=== PATIENT | male | born 1990 | race African-American/Black ===

== ENCOUNTER 2019-12-28 00:20 | Emergency (ER) | payer SELFPAY ==
[~2019-12-28] VITALS: Ht 172.7 cm; Wt 72.7 kg
[2019-12-28] MEDS ORDERED: ONDANSETRON ODT 4 MG TAB.RAPDIS. ONE (00:32)
--- NOTE | 2019-12-28 00:32 | PHYS DOC ---
Past Medical History Past Medical History: No Pertinent History Past Surgical History: No Surgical History Alcohol Use: Rarely Drug Use: Marijuana General Adult HPI: HPI: The history was obtained from the patient and EMS. Patient is a 29-year-old male with reported PMH who presents with a chief complaint of altered mental status. EMS states they were called to the patient's house for altered mental status. They state on arrival the patient was unresponsive. They state without intervention the patient became more alert and responsive. He endorses smoking K2 synthetic cannabinoids approximately 30 minutes prior to EMS arrival. He does note to drinking some alcohol tonight. He denies ingesting the substances in an attempt to harm himself. He denies any other known ingestions. He states his jaw feels tight. He denies any chest pain or shortness of breath. He denies any auditory visual hallucinations. He states he has used K2 in the past without this effect. Denies any headache. Denies vision or hearing changes. EMS states that he did vomit once in route without signs of aspiration. No other complaints. Review of Systems: Review of Systems: Constitutional: Denies fever or chills. [] Eyes: Denies change in visual acuity. [] HENT: Denies nasal congestion or sore throat. [] Respiratory: Denies cough or shortness of breath. [] Cardiovascular: Denies chest pain or edema. [] GI: Denies abdominal pain, nausea, vomiting, bloody stools or diarrhea. [] : Denies dysuria. [] Musculoskeletal: Denies back pain or joint pain. [] Integument: Denies rash. [] Neurologic: Positive for somnolence Endocrine: Denies polyuria or polydipsia. [] Lymphatic: Denies swollen glands. [] Psychiatric: Denies depression or anxiety. [] Heart Score: Risk Factors: Risk Factors: DM, Current or recent (<one month) smoker, HTN, HLP, family history of CAD, obesity. Risk Scores: Score 0 - 3: 2.5% MACE over next 6 weeks - Discharge Home Score 4 - 6: 20.3% MACE over next 6 weeks - Admit for Clinical Observation Score 7 - 10: 72.7% MACE over next 6 weeks - Early Invasive Strategies Allergies: Allergies: Allergies Coded Allergies Type Severity Reaction Last Updated Verified No Known Drug Allergies 11/02/13 No Physical Exam: PE: Constitutional: Well developed, well nourished, no acute distress, non-toxic appearance. [] HENT: Normocephalic, atraumatic, bilateral external ears normal, oropharynx moist, no oral exudates, nose normal. [] Eyes: PERRLA, EOMI, conjunctiva normal, no discharge. [] Neck: Normal range of motion, no tenderness, supple, no stridor. [] Cardiovascular:Heart rate regular rhythm, no murmur [] Lungs & Thorax: Bilateral breath sounds clear to auscultation [] Abdomen: soft, no tenderness, no masses, no pulsatile masses. [] Skin: Warm, dry, no erythema, no rash. [] Back: No tenderness, no CVA tenderness. [] Extremities: No tenderness, no cyanosis, no clubbing, ROM intact, no edema. [] Neurologic: Alert with intact cognitive function. No aphasia, dysarthria, or neglect. GCS 15. Pupils 6 mm briskly reactive b/l. No APD present. Cranial nerves 2-12 grossly intact; no facial asymmetry present, tongue midline, shoulder shrugging strength intact. Strength 5/5 and symmetric throughout. Light touch sensation intact throughout. Cerebellar testing appropriate without evidence of dysdiadochokinesia. DTR's 2+ in all 4 extremities. Negative pronator drift bilaterally. Psychologic: Affect normal, judgement normal, mood normal. [] Current Patient Data: Labs: Laboratory Tests Test 12/28/19 00:23 12/28/19 00:56 White Blood Count 16.2 x10^3/uL Red Blood Count 4.79 x10^6/uL Hemoglobin 14.2 g/dL Hematocrit 43.1 % Mean Corpuscular Volume 90 fL Mean Corpuscular Hemoglobin 30 pg Mean Corpuscular Hemoglobin Concent 33 g/dL Red Cell Distribution Width 13.8 % Platelet Count 215 x10^3/uL Neutrophils (%) (Auto) 77 % Lymphocytes (%) (Auto) 15 % Monocytes (%) (Auto) 7 % Eosinophils (%) (Auto) 0 % Basophils (%) (Auto) 1 % Neutrophils # (Auto) 12.4 x10^3/uL Lymphocytes # (Auto) 2.5 x10^3/uL Monocytes # (Auto) 1.1 x10^3/uL Eosinophils # (Auto) 0.1 x10^3/uL Basophils # (Auto) 0.1 x10^3/uL Platelet Estimate Pending Sodium Level 140 mmol/L Potassium Level 3.7 mmol/L Chloride Level 107 mmol/L Carbon Dioxide Level 26 mmol/L Anion Gap 7 Blood Urea Nitrogen 12 mg/dL Creatinine 1.4 mg/dL Estimated GFR (Cockcroft-Gault) 73.6 BUN/Creatinine Ratio 9 Glucose Level 113 mg/dL Calcium Level 8.7 mg/dL Total Bilirubin 1.0 mg/dL Aspartate Amino Transf (AST/SGOT) 16 U/L Alanine Aminotransferase (ALT/SGPT) 21 U/L Alkaline Phosphatase 67 U/L Total Protein 7.4 g/dL Albumin 4.1 g/dL Albumin/Globulin Ratio 1.2 Salicylates Level < 2.8 mg/dL Salicylate Last Dose Date Unknown Salicylate Last Dose Time Unknown Acetaminophen Level < 2 mcg/ml Acetaminophen Last Dose Date Unknown Acetaminophen Last Dose Time Unknown Ethyl Alcohol Level 47 mg/dL Urine Opiates Screen Neg Urine Methadone Screen Neg Urine Barbiturates Neg Urine Phencyclidine Screen Neg Urine Amphetamine/Methamphetamine Neg Urine Benzodiazepines Screen Neg Urine Cocaine Screen Neg Urine Cannabinoids Screen Neg Urine Ethyl Alcohol Pos Current Medications Medications (Trade) Dose Ordered Sig/Radha Route PRN Reason Start Time Stop Time Status Last Admin Dose Admin Lorazepam (Ativan Inj) 1 mg 1X ONCE IVP 12/28/19 01:00 12/28/19 01:01 DC 12/28/19 00:36 Ondansetron HCl (Zofran Odt) 4 mg STK-MED ONCE .ROUTE 12/28/19 00:32 12/28/19 00:32 DC Sodium Chloride 1,000 ml @ 100 mls/hr 1X ONCE IV 12/28/19 01:30 12/28/19 11:29 12/28/19 01:23 EKG: EKG: EKG consistent with normal sinus rhythm. Ventricular rate of 90 bpm. Sinus arrhythmia noted. Right axis noted. No ST segment elevation appreciated. Overall nonspecific EKG. [] Radiology/Procedures: Radiology/Procedures: [] Course & Med Decision Making: Course & Med Decision Making Pertinent Labs and Imaging studies reviewed. (See chart for details) Patient is a 29-year-old male who arrives via EMS for adverse reaction after smoking K2. Upon arrival vital signs notable for mild tachycardia. The patient did have a GCS of 15 on arrival. Denies ingestion of drugs in attempt to harm himself. Work-up grossly unremarkable. Minimal alcohol level. CT head nonacute. Remainder of labs unremarkable. Slight elevation of creatinine however the patient is tolerating p.o. He does have mild leukocytosis with this is likely reactive secondary to his recent drug use. Low suspicion for infection. Patient was monitored in the emergency department. He showed no signs of clinical or hemodynamic deterioration. Patient did slowly become more alert. At this time he does have a GCS of 15. He is alert and oriented x3. He has been able to ambulate without difficulty. Mom is at bedside currently. I do feel it is reasonable to discharge patient home with close monitoring. Mom does feel comfortable taking the patient home. He continues to deny any suicidal homicidal ideation. Return precautions discussed and understood. Instructed to follow-up with his primary care physician in the next 2 to 3 days. Stable for discharge home. Dragon Disclaimer: Alyson Disclaimer: This electronic medical record was generated, in whole or in part, using a voice recognition dictation system. Departure Departure Impression: Primary Impression: Synthetic cannabinoid intoxication Additional Impression: Alcohol intoxication Qualified Codes: F10.929 - Alcohol use, unspecified with intoxication, unspecified Disposition: 01 HOME, SELF-CARE Condition: IMPROVED Patient Instructions: Alcohol Intoxication Additional Instructions: Please follow-up with your primary care physician in the next 2 to 3 days. Please return emergency department should her symptoms not improve or worsen. [facility] [address] [place] [address] [facility] [address] [place] [address] [facility] [address] [facility] [place] [address] [facility] [address] [place] [address] [facility] [address] [place] [address] [facility] [address] [place] [address] [facility] [address] [place] [address] [facility] [address] [place] [address] [employer] [address] [place] [address] [facility] [address] [place] [address] Justicifation of Admission Dx: Justifications for Admission: Justification of Admission Dx: N/A NIMISHA HAND DO Dec 28, 2019 00:32
[2019-12-28 00:43] LABS: BASO # 0.1 x10^3/uL (0.0-0.2); BASO % 1 % (0-3); EOS # 0.1 x10^3/uL (0.0-0.7); EOS % 0 % (0-3); HEMATOCRIT 43.1 % (39.0-53.0); HEMOGLOBIN 14.2 g/dL (13.0-17.5); LYMPH # 2.5 x10^3/uL (1.0-4.8); LYMPH % 15 % (24-48); MEAN CORPUSCULAR HEMOGLOBIN 30 pg (25-35); MEAN CORPUSCULAR HGB CONC 33 g/dL (31-37); MEAN CORPUSCULAR VOLUME 90 fL (79-100); MONO # 1.1 x10^3/uL (0.0-1.1); MONO % 7 % (0-9); NEUT # 12.4 x10^3/uL (1.8-7.7); NEUT % 77 % (31-73); PLATELET COUNT 215 x10^3/uL (140-400); RED BLOOD COUNT 4.79 x10^6/uL (4.30-5.70); RED CELL DISTRIBUTION WIDTH 13.8 % (11.5-14.5); WHITE BLOOD COUNT 16.2 x10^3/uL (4.0-11.0)
[2019-12-28 00:58] LABS: CALCIUM 8.7 mg/dL (8.5-10.1); CREATININE 1.4 mg/dL (0.7-1.3); GFR 73.6; POTASSIUM 3.7 mmol/L (3.5-5.1)
[2019-12-28 01:03] LABS: ALBUMIN 4.1 g/dL (3.4-5.0); ALBUMIN/GLOBULIN RATIO 1.2 (1.0-1.7); TOTAL PROTEIN 7.4 g/dL (6.4-8.2)
[2019-12-28 01:09] LABS: ACETAMIN < 2 mcg/ml (10-30); ETHANOL 47 mg/dL (0-10); SALIC < 2.8 mg/dL (2.8-20.0)
[2019-12-28 01:19] LABS: BARBITURATES NEG (NEG); BENZODIAZEPINES NEG (NEG); CANNABINOIDS NEG (NEG); COCAINE NEG (NEG); METHADONE NEG (NEG); OPIATES NEG (NEG); PHENCYCLIDINE NEG (NEG)
[2019-12-28] MEDS ORDERED: IV NORMAL SALINE 1000ML BAG 1,000 ML IV ONE (01:30)
[2019-12-28 01:32] LABS: AMPHETAMINE/METHAMPHETAMINE NEG (NEG)
--- NOTE | 2019-12-28 02:22 | EKG ---
[facility] [address] [place] [address] Test Date: 2019-12-28 Test Time: 00:33:53 Pat Name: JENNY LEONARDO Department: Room: Gender: M [employer]: : 1990 Requested By: NIMISHA HAND Order Number: [id number] Reading MD: Measurements Intervals [place] Rate: 90 P: LA: QRS: 90 QRSD: 98 T: 56 QT: 344 QTc: 425 Interpretive Statements ATRIAL FLUTTER RVH WITH REPOLARIZATION ABNORMALITY ABNORMAL ECG RI6.02 No previous ECG available for comparison
--- NOTE | 2019-12-28 02:47 | RAD ---
STUDY: CT head without contrast INDICATION: Altered mental status. COMPARISON: None. TECHNIQUE: Axial CT imaging through the head without the use of intravenous contrast. Sagittal and coronal reformats were obtained. One or more of the following individualized dose reduction techniques were utilized for this examination: 1. Automated exposure control 2. Adjustment of the mA and/or kV according to patient size 3. Use of iterative reconstruction technique. FINDINGS: No acute intracranial hemorrhage. [place]-white matter differentiation is maintained. No mass effect, midline shift or hydrocephalus. Unremarkable scalp and calvarium. IMPRESSION: Unremarkable head CT. Electronically signed by: LUANNE HANSEN MD (12/28/2019 2:44 AM) [id number]
[2019-12-28 05:33] VITALS: BP 125/83
--- NOTE | 2019-12-28 05:57 | RAD ---
Study: CR CHEST AP ONLY Indication: Altered mental status. Comparison: None. Findings: Unremarkable cardiomediastinal silhouette and chelsi. No lobar consolidation, pleural effusion or pneumothorax. Impression: No acute radiographic abnormality. Electronically signed by: LUANNE HANSEN MD (12/28/2019 5:54 AM) [id number]
== END 2019-12-28 05:49 | disposition home or self-care (01) ==
LOC: ER 00:20
DX: F10.229 Alcohol dependence with intoxication, unspecified (principal); R41.82 Altered mental status, unspecified; R20.2 Paresthesia of skin; F12.90 Cannabis use, unspecified, uncomplicated
CPT/HCPCS: 36415; 70450; 71045; 80053; 80307; 80329; 85025; 93005; 96361; 96374; 99285; G0480; J2060; J7030

== ENCOUNTER 2020-01-26 21:46 | Emergency (ER) | payer SELFPAY ==
[~2020-01-26] VITALS: Ht 172.7 cm; Wt 79.5 kg
[2020-01-26 21:50] VITALS: BP 128/64
--- NOTE | 2020-01-26 21:59 | PHYS DOC ---
Past Medical History Past Medical History: No Pertinent History Past Surgical History: No Surgical History Smoking Status: Current Every Day Smoker Alcohol Use: Rarely Drug Use: Marijuana General Adult EDM: Chief Complaint: SEXUALLY TRANSMITTED DISEASE HPI: HPI: Patient is a 29 year old male who presents with states for the last week he has had burning with urination white creamy discharge. He states that his girlfriend went to [place] today to get checked also. Patient denies abdominal pain, nausea, vomiting, diarrhea, fever, back pain, testicular pain, blood in his urine. He denies past medical history although he states a few years ago he had a sexually transmitted disease also and that is what this feels like. Patient currently has no pain but he does have burning with urination. Review of Systems: Review of Systems: Constitutional: Denies fever or chills. [] Eyes: Denies change in visual acuity. [] HENT: Denies nasal congestion or sore throat. [] Respiratory: Denies cough or shortness of breath. [] Cardiovascular: Denies chest pain or edema. [] GI: Denies abdominal pain, nausea, vomiting, bloody stools or diarrhea. [] : + dysuria. +White penile discharge [] Musculoskeletal: Denies back pain or joint pain. [] Integument: Denies rash. [] Neurologic: Denies headache, focal weakness or sensory changes. [] Endocrine: Denies polyuria or polydipsia. [] Lymphatic: Denies swollen glands. [] Psychiatric: Denies depression or anxiety. [] Heart Score: Risk Factors: Risk Factors: DM, Current or recent (<one month) smoker, HTN, HLP, family history of CAD, obesity. Risk Scores: Score 0 - 3: 2.5% MACE over next 6 weeks - Discharge Home Score 4 - 6: 20.3% MACE over next 6 weeks - Admit for Clinical Observation Score 7 - 10: 72.7% MACE over next 6 weeks - Early Invasive Strategies Current Medications: Current Medications Medications (Trade) Dose Ordered Sig/Radha Start Time Stop Time Status Last Admin Dose Admin Azithromycin (Zithromax) 1,000 mg 1X ONCE 01/26/20 22:00 01/26/20 22:01 UNV Ceftriaxone Sodium (Rocephin Im) 250 mg 1X ONCE 01/26/20 22:00 9/27/20 22:01 UNV Allergies: Allergies: Allergies Coded Allergies Type Severity Reaction Last Updated Verified No Known Drug Allergies 11/02/13 No Physical Exam: PE: Constitutional: Well developed, well nourished, no acute distress, non-toxic appearance. [] HENT: Normocephalic, atraumatic, bilateral external ears normal, oropharynx moist, no oral exudates, nose normal. [] Eyes: PERRLA, EOMI, conjunctiva normal, no discharge. [] Neck: Normal range of motion, no tenderness, supple, no stridor. [] Cardiovascular:Heart rate regular rhythm, no murmur [] Lungs & Thorax: Bilateral breath sounds clear to auscultation [] Abdomen: Bowel sounds normal, soft, no tenderness, no masses, no pulsatile masses. [] Skin: Warm, dry, no erythema, no rash. [] Back: No tenderness, no CVA tenderness. [] Extremities: No tenderness, no cyanosis, no clubbing, ROM intact, no edema. [] Neurologic: Alert and oriented X 3, normal motor function, normal sensory function, no focal deficits noted. [] Psychologic: Affect normal, judgement normal, mood normal. Normal physical exam [] EKG: EKG: [] Radiology/Procedures: Radiology/Procedures: [] Course & Med Decision Making: Course & Med Decision Making Pertinent Labs and Imaging studies reviewed. (See chart for details) Abdomen soft and nontender. Afebrile. Ambulatory with a steady gait. Alert and oriented x4. Skin pink warm and dry. No penile discharge seen at this time. Urine is sent to the lab. Patient is given azithromycin and Rocephin in the ED to treat for chlamydia and gonorrhea. Patient is educated he will be called in 48 hours only if he has positive results. [] Dragon Disclaimer: Dragon Disclaimer: This electronic medical record was generated, in whole or in part, using a voice recognition dictation system. Departure Departure Impression: Primary Impression: Sexually transmitted disease exposure Additional Impression: Urinary symptom or sign Disposition: HOME, SELF-CARE Condition: STABLE Referrals: NO PCP (PCP) Patient Instructions: Sexually Transmitted Disease, [id number] Additional Instructions: You will be called in 48 hours only if your results are positive. Make sure that you have your partner checked also if they have not already. If symptoms persist you should follow-up with a primary care doctor or [facility]. Justicifation of Admission Dx: Justifications for Admission: Justification of Admission Dx: N/A SHANIQUA ALFARO SOLE LEVELER Jan 26, 2020 21:59
[2020-01-26 22:17] LABS: BILIRUBIN,URINE NEGATIVE (NEG); CLARITY,URINE CLEAR; COLOR,URINE YELLOW; NITRITE,URINE NEGATIVE (NEG); PH,URINE 6.5 (<5.0-8.0); PROTEIN,URINE NEGATIVE (NEG-TRACE)
[2020-01-26 22:23] LABS: BACTERIA,URINE 0 /HPF (0-FEW); WBC,URINE >40 /HPF (0-4)
[2020-01-26] MEDS ORDERED: cefTRIAXone IM 250 MG VIAL IM ONE (22:30)
[2020-01-26] MEDS ORDERED: AZITHROMYCIN 250 MG TABLET. PO ONE (22:30)
== END 2020-01-26 22:30 | disposition home or self-care (01) ==
LOC: ER 21:46
DX: R30.9 Painful micturition, unspecified (principal); R30.0 Dysuria; R36.9 Urethral discharge, unspecified; F17.200 Nicotine dependence, unspecified, uncomplicated; F12.90 Cannabis use, unspecified, uncomplicated; Z20.2 Contact with and (suspected) exposure to infections with a predominantly sexual mode of transmission
CPT/HCPCS: 81001; 87086; 87491; 87591; 96372; 99283; J0696